=== PATIENT | female | born 2000 | race Caucasian/White ===

== ENCOUNTER 2020-05-20 10:10 | Emergency (ER) | payer SELFPAY ==
[~2020-05-20] VITALS: Ht 172.7 cm; Wt 129.5 kg
[2020-05-20 10:35] VITALS: BP 125/78
[2020-05-20] MEDS ORDERED: IBUPROFEN 600 MG TABLET. PO ONE (11:00)
[2020-05-20] MEDS ORDERED: ACETAMINOPHEN 325 MG TABLET PO ONE (11:00)
--- NOTE | 2020-05-20 11:12 | RAD ---
EXAM: 1. Right knee 4 views. 2. Right ankle 3 views. HISTORY: Fall with right ankle and knee pain. COMPARISON: None. FINDINGS: No fractures are appreciated at the right knee. Joint spaces and alignment are maintained. There is no joint effusion. No fractures are appreciated at the right ankle. The joint spaces and alignment of the ankle mortise are maintained. There is a small bone island within the distal tibia. IMPRESSION: 1. No fracture or malalignment. Electronically signed by: Faisal Garza MD (05/20/2020 11:10 AM) [facility]
--- NOTE | 2020-05-20 11:21 | PHYS DOC ---
Past History Past Medical History: Depression Past Surgical History: Tonsillectomy, Other Additional Past Surgical Histo: EUSTATION TUBES, WISDOM TOOTH EXTRACTION Alcohol Use: Occasionally Adult General Chief Complaint Chief Complaint: KNEE INJURY HPI HPI Sherri Lott is a 19-year-old female presenting with right knee pain. Pain began last night after she tripped and fell forward onto both knees. She reports feeling a "pop" and immediately felt sharp pain in the right knee that radiated both up and down the leg. She noticed mild swelling on the right side, she denies any pain or swelling of the left knee. She immediately had difficulty ambulating due to pain. She took 3 Tylenol last night which provided some relief but she continues to complain of right knee pain and difficulty ambulating today. The pain is currently diffuse and worse at the lateral right side. The pain is worse with any movement. She denies any numbness, tingling, or radiation of the pain currently. She reports a prior history of sprains and strains in both knees. No prior surgical history to lower extremities Review of Systems Review of Systems Fourteen body systems of review of systems have been reviewed. See HPI for pertinent positives and negative responses, other souza all other systems are negative, non-pertinent or non-contributory Current Medications Current Medications Current Medications Medications (Trade) Dose Ordered Sig/[place] Start Time Stop Time Status Last Admin Dose Admin Acetaminophen (Tylenol) 650 mg 1X ONCE 05/20/20 11:00 05/20/20 11:01 UNV Ibuprofen (Motrin) 600 mg 1X ONCE 05/20/20 11:00 05/20/20 11:01 UNV Allergies Allergies Allergies Coded Allergies Type Severity Reaction Last Updated Verified cefdinir Allergy Unknown 05/20/20 Yes Physical Exam Physical Exam Constitutional: Well developed, well nourished, no acute distress, non-toxic appearance. HENT: Normocephalic, atraumatic, bilateral external ears normal, oropharynx moist, no oral exudates, nose normal. Eyes: PERRLA, EOMI, conjunctiva normal, no discharge. Neck: Normal range of motion, no tenderness, supple, no stridor. Cardiovascular: Heart rate regular per monitor Lungs & Thorax: No respiratory distress or accessory muscle use, bilateral chest rise Abdomen: Abdomen soft, non-tender, bowel sounds present in all quadrants, no guarding or rebound, nonacute abdomen. Skin: Warm, dry, no erythema, no rash. Back: No tenderness, no CVA tenderness. Extremities: No cyanosis, no clubbing, no edema. Bilateral knees unless otherwise noted: Right patella tender anteriorly to palpation Medial and Lateral Joint paradi tender bilaterally without any gross abnormalities Unable to perform anterior or posterior Lg exams and/or valgus or varus testing of knee due to guarding of patient Decreased range of motion in all planes due to pain but 5/5 strength appreciated Neurovascular exam distally in tact per routine Compartments surrounding are soft Bilateral Feet and Ankles unless otherwise noted: Proximal Tibia nontender Medial malleolus nontender Lateral malleolus tender with palpation without any gross palpable abnormalities, subtle soft tissue edema noted Calcaneus nontender Tarsometatarsal region nontender Base of 5th nontender Rest of foot and ankle without marked tenderness Varus and Valgus Stress of ankle joint without significant laxity Full Range of Motion with full strength Skin on plantar section of midfoot without ecchymosis Capillary refill <2seconds and distal Sensation to light touch in tact per routine Compartments surrounding are soft Neurologic: Alert and oriented X 3, grossly normal motor & sensory function, no focal deficits noted. Psychologic: Affect normal, judgement normal, mood normal. Current Patient Data Vital Signs Vital Signs Date Time Temp Pulse Resp B/P (MAP) Pulse Ox O2 Delivery O2 Flow Rate FiO2 05/20/20 10:35 97.9 96 20 125/78 (94) 98 Room Air EKG EKG [] Radiology/Procedures Radiology/Procedures EXAM: 1. Right knee 4 views. 2. Right ankle 3 views. HISTORY: Fall with right ankle and knee pain. COMPARISON: None. FINDINGS: No fractures are appreciated at the right knee. Joint spaces and alignment are maintained. There is no joint effusion. No fractures are appreciated at the right ankle. The joint spaces and alignment of the ankle mortise are maintained. There is a small bone island within the distal tibia. IMPRESSION: 1. No fracture or malalignment. Electronically signed by: Faisal Garza MD (05/20/2020 11:10 AM) [facility] ///////////////////////////////// PROCEDURE: ANKLE RIGHT 3V EXAM: 1. Right knee 4 views. 2. Right ankle 3 views. HISTORY: Fall with right ankle and knee pain. COMPARISON: None. FINDINGS: No fractures are appreciated at the right knee. Joint spaces and alignment are maintained. There is no joint effusion. No fractures are appreciated at the right ankle. The joint spaces and alignment of the ankle mortise are maintained. There is a small bone island within the distal tibia. IMPRESSION: 1. No fracture or malalignment. Electronically signed by: Faisal Garza MD (05/20/2020 11:10 AM) [facility] Heart Score C/O Chest Pain: No Risk Factors: Risk Factors: DM, Current or recent (<one month) smoker, HTN, HLP, family history of CAD, obesity. Risk Scores: Risk Factors: DM, Current or recent (<one month) smoker, HTN, HLP, family history of CAD, obesity. Course & Med Decision Making Course & Med Decision Making Pertinent Labs and Imaging studies reviewed. (See chart for details) Reviewed negative radiographs of right knee and ankle respectively. Patient is ambulatory but does have antalgic gait due to pain Discussed most likely diagnosis of right lower extremity strains versus sprains. Discussed low likelihood of any bony abnormality. I did disclose this could be an early presentation of a ligamentous/meniscal injury but no indication for transport for further evaluation and at present Discussed little role of further diagnostic work-up while in ER setting. Continued supportive care and close outpatient follow-up with PCP for repeat evaluation advised Educated patient extensively on supportive care practices such as rice protocol. Patient has Tylenol and ibuprofen at home. Discussed healthy usage of both medications at length with good understanding Strict return precautions discussed with good understanding by patient, all questions and concerns addressed prior to ER departure in stable condition Electronically signed - DO Sigrid Doss Disclaimer Sigrid Disclaimer This electronic medical record was generated, in whole or in part, using a voice recognition dictation system. Departure Departure: Impression: Primary Impression: Right anterior knee pain Additional Impression: Right ankle pain Disposition: 01 DC HOME SELF CARE/HOMELESS Condition: GOOD Referrals: [facility] (PCP) Patient Instructions: RICE - Routine Care for Injuries Additional Instructions: You were seen for knee pain. Your knee pain is most likely due to a bruise. You should follow up with your primary care doctor for more evaluation and treatment. You can use ice, rest, and ibuprofen for symptom control. Your xray did not show any obvious fracture or other abnormality. If you continue having symptoms you may need to follow up with your primary doctor to consider having an MRI or other testing if symptoms persists. Please return to the ED if you have new or worsening symptoms. Problem Qualifiers DANNY STAUFFER DO May 20, 2020 11:21
== END 2020-05-20 11:35 | disposition home or self-care (01) ==
LOC: ER 10:10
DX: M25.561 Pain in right knee (principal); M25.571 Pain in right ankle and joints of right foot; Z88.1 Allergy status to other antibiotic agents; W01.0XXA Fall on same level from slipping, tripping and stumbling without subsequent striking against object, initial encounter; Y93.89 Activity, other specified; Y92.89 Other specified places as the place of occurrence of the external cause; Y99.8 Other external cause status
CPT/HCPCS: 73564; 73610; 99284